=== PATIENT | male | born 1980 | race American Indian/Alaskan Native ===

== ENCOUNTER 2020-03-11 08:41 | Emergency (ER) | payer SELFPAY ==
[2020-03-11 08:54] VITALS: BP 140/84
--- NOTE | 2020-03-11 10:26 | Emergency Department Report ---
Chief Complaint: Urogenital-Male Stated Complaint: STD CHECK Time Seen by Provider: 03/11/20 10:13 - HPI History of Present Illness: The patient was evaluated in the emergency department for symptoms described in the history of present illness. He/she was evaluated in the context of the global COVID-19 pandemic, which necessitated consideration that the patient might be at risk for infection with the virus that causes COVID-19. Institutional protocols and algorithms that pertain to the evaluation of patients at risk for COVID-19 are in a state of rapid change based on information released by regulatory bodies including the CDC and federal and state organizations. These policies and algorithms were followed during the patient's care in the emergency department. Please note that these policies, procedures and recommendations changed on a rapid basis. 39-year-old -[place] male presents to the emergency room for a 1 day history of dysuria and penile discharge. Patient denies any abdominal pain no nausea no vomiting no chest pain no shortness of breath no fever no chills. Patient does admit to unprotected intercourse. - Exam Vital Signs: Vital Signs 03/11/20 08:52 Temperature 98.2 F Pulse Rate 79 Respiratory 18 Rate Blood Pressure 140/84 O2 Sat by Pulse 98 Oximetry Physical Exam: Gen: alert oriented NAD Cardic: regular rate and rhythm no murmurs appreciated Resp: Clear to auscultation bilateral no wheezing no rales or rhonchi. Abdomen: Soft nontender nondistended normal bowel sounds. Mini neuro: , Alert and oriented time 3 Crainal nerve II-IIX intact ambulatory without difficulties MSE screening note: Focused history and physical exam performed. Due to findings the following was ordered: 39-year-old -[place] male presents to the emergency room for a 1 day history of dysuria and penile discharge. Patient denies any abdominal pain no nausea no vomiting no chest pain no shortness of breath no fever no chills. Patient does admit to unprotected intercourse. Discussed with patient he can follow-up with urgent care or health department handout for community resources were given. Patient has no risk for loss of limb or life. Patient verbalized understanding. ED Disposition for MSE Disposition: Z- MED SCREENING EXAM-LEFT Is pt being admited?: No Does the pt Need Aspirin: No Condition: Stable Additional Instructions: Community resources
== END 2020-03-11 10:30 | disposition left against medical advice (07) ==
LOC: ED 08:41
DX: Z11.3 Encounter for screening for infections with a predominantly sexual mode of transmission (principal); Z53.21 Procedure and treatment not carried out due to patient leaving prior to being seen by health care provider